=== PATIENT | female | born 1975 | race Caucasian/White ===

== ENCOUNTER 2023-04-16 13:49 | Outpatient (AMB) | payer MEDICARE, MEDICAID, SELFPAY ==
--- NOTE | 2023-04-16 13:52 | A.OFFVIS_ITS ---
Intake VS Expanded 04/16/23 13:55 04/25/23 14:06 Height 5 ft 8 in 5 ft 8 in Weight 196 lb 13.965 oz 197 lb BMI 29.9 30.0 Intake Visit Reasons: Obesity Medication List - Last Reconciled 04/25/[address], LDN cholecalciferol (vitamin D3) 125 mcg PO DAILY HPI Nutrition Presentation Details Pt presents for MNT for obesity. The Pt was referred by Dr Norma De La Rosa Pt reports having hashimotos , gastritis Pt reports highest weight at 171 lbs Reports having gained 30-35 lbs in a years (since moving from [place]) Typical meal intake 9-10 am B: coffee with almond milk and sugar ( 1/2 regular sugar , used to have splenda or may have oatmeal or pancake or scrambled or may skip snack on crackers 3 pm : rice/beans/ chicken air fryer or pasta with chicken coffee crackers or yogurt reports taking vitamin d 3 11120 food frequency: fruit/day: 2 vegetables (carrots, one/wk milk 0-1/d fish weekly (not including) physical activity: sedentary d/t back pain ETOH/SMOKING: denies AMS-Tkeogoc-Cj.Jeor Equation Height 5 ft 8 in Weight 197 lb Resting Metabolic Rate 1579.94 Calculated Activity Level Sedentary Calories Needed to Maintain Weight 1895.93 Diagnosis Nutrition problem #1 excessive energy intake As related to (etiology) #1 diagnosis As evidenced by (sign/symptom) #1 weight gain (reported weight gain of 30-35 lbs in 1 yr) Monitoring/Goals Nutrition problem monitoring total energy intake and weight Nutrition goal/outcome wt loss 5lbs in 2 months Learning/Education Readiness to learn good Most Recent Diabetes Results: No Data to Display [facility] Medical History (Updated 04/25/23 @ 14:[address], LDN) Elsa's disease Gastritis Assessment & Plan Assessment & Plan (1) Obesity (BMI 30.0-34.9): Code(s): E66.9 - Obesity, unspecified Plan: wt: 90 kg Est kcal needs as per MSJ: 1900 (40% carb, 30% protein/fat) Est fluid needs as per 25-30 ml/d: 2250 - 2700 Est prot per day as per 1 g/kg bw: 90g Recommend fiber intake : 8-10 g per day and gradually increase to 25-28 g per day for women and 35-38 g for men or as tolerated Recommend sodium intake per day : less than 2000 mg Educated patient on: ( R = reviewed V = verbalizes understanding N/R = needs review N/A = not applicable * Food sources of carbohydrate, adequate serving sizes and its role in various health conditions: R * Differences between complex carbohydrates a simple carbohydrates, role of fiber in diet: R * Differences between types of fats and role in diet (mono on saturated fat fatty acids, saturated fatty acids, trans fats): R * Food sources of sodium in salt and healthy modifications for heart health in kidney health: R * Vitamins and minerals: R * Healthy plate method concept: R * Physical activity: Benefits a precaution: R Patient Instructions: Work on having 3 meals per day following healthy plate method at dinner See 1800- 2000 antonio meal plan as reference Coding Level of Care Code Nutr Indiv Intake (83341) Diagnoses Obesity (BMI 30.0-34.9) E66.9 Time Spent (min) 30
[2023-04-16 13:55] VITALS: BMI 29.9
== END 2023-04-16 14:50 | disposition home or self-care (01) ==
PROVIDERS: PCP Internal Medicine; Visit Provider Dietitian, Registered
DX: E66.9 Obesity, unspecified (principal)

== ENCOUNTER → 2023-04-16 13:49 | Outpatient (BNVA) | payer MEDICARE, MEDICAID, SELFPAY | PROVIDERS: PCP Internal Medicine; Visit Provider Dietitian, Registered | DX: E66.9 Obesity, unspecified (principal); Z68.29 Body mass index [BMI] 29.0-29.9, adult; Z71.3 Dietary counseling and surveillance | CPT/HCPCS: 97802 ==

== ENCOUNTER 2024-12-18 09:21 | Day surgery (SDC) | payer OTHER, SELFPAY ==
--- OUTSIDE RECORDS SUMMARY | 2024-12-16 17:38 | XMS_ITS | Encounter Summary ---
Author Organization [facility] Address [address] [place] [address] Care Team Providers Care Brush Sander Name Role Phone Steffany Vázquez MD Primary Care Prov ider Encounter Details Date Type Department Care Team (Late st Contact Info) Description 09/18/2024 Lab Requisition [facility] - Main Lab [address] [facility] [place] [phone] Spike Young MD [address] [facility] [address] [place] [address] Frequency of micturition Social History Tobacco Use Types Packs/Day Years Used Date Smoking Tobacco: Never Smokeless Tobacco: Never Alcohol Use Standard Drinks/Week Comments Never 0 (1 standard drink = 0.6 oz pur e alcohol) Housing Instability Answer Date Recorde d Are you worried that in the next 2 months you may not have stable housing? No 06/19/2024 Food Access & Nutrition Answer Date Rec orded Do you have access to a vari ety of food including fruits and vegetables? Yes 06/19/2024 Access to Healthcare Answer Date Record ed Within the last 3 months, ho w many times did you visit the emergency department for your medical care? 0 06/19/2024 Health Literacy Answer Date Recorded How often do you need to hav e someone help you when you read instructions, pamphlets, or other written material from your doctor or pharmacy? Never 06/19/2024 Caregiver: How often do you need to have someone help you when you read instructions, pamphlets, or other written material from your doctor or pharmacy? Not on file 06/19/2024 Financial Risk Answer Date Recorded How hard is it for you to pa y for the very basics like food, housing, medical care, and air conditioning / heating? Not very hard 06/19/2024 Transportation Answer Date Recorded Has the lack of transportati on kept you from meetings, work, or from getting things needed for daily living? No Has the lack of transportati on kept you from medical appointments or from getting medications? No 06/19/2024 Social Isolation Answer Date Recorded How often do you feel lonely or isolated from those around you? Sometimes 06/19/2024 Food Risk Answer Date Recorded Within the past 12 months we worried whether our food would run out before we got money to buy more. Never true 06/19/2024 Within the past 12 months th e food we bought just didn't last and we didn't have money to get more. Never true 06/19/2024 Dependent Care Answer Date Recorded Do you need help finding or paying for care for your loved ones. For example, child watch attendant or elderly care for an older adult? No 06/19/2024 Education Answer Date Recorded Do you think completing more education or training, like finishing a GED, going to college, or learning a trade, would be helpful for you? No 06/19/2024 Employment and Income Answer Date Recor ded During the last four weeks, have you been actively looking for work? No 06/19/2024 Living Situation Answer Date Recorded What is your living situation? 1 08/20/2023 Comments No Sex and Gender Information Value Date Recorded Sex Assigned at Not on file Legal Sex Female 9:05 PM EST Gender Identity Not on file Sexual Orientation Not on file documented as of this encounter Plan of Treatment Upcoming Encounters Date Type Department Care Team (Late st Contact Info) Description 12/30/2024 8:00 AM EDT Office Visit Adult Medicine [address] [phone] Steffany Vázquez MD [address] [place] [address] 03/19/2025 11:30 AM EDT Appointment Radiology Department - [address] [phone] documented as of this encounter Procedures Procedure Name Priority Date/Time Associated Diagnosis Comments CULTURE URINE Routine 09/18/2024 6:29 PM EDT Frequency of micturition documented in this encounter Results * Culture urine (09/18/2024 6:29 PM EDT) Culture, Urine No growth 09/19/2024 1:13 PM EDT [facility] Urine Urine specimen obtained by clean catch procedure / Unknown 09/18/2024 6:29 PM EDT 09/18/2024 6:30 PM EDT us Spike Young MD LAB MICROBIOLOGY - GENER AL ORDERABLES Final Result [facility] [address] [place] [address], documented in this encounter Visit Diagnoses Diagnosis Frequency of micturition Urinary frequency Encounter for screening mammogram for breast cancer documented in this encounter Additional Health Concerns Assessment Noted Time PHQ-9 Depression Total Score: 14 025 8:43 AM EST documented as of this encounter Care Teams Brush Sander Relationship Specialty Start Date End Date Steffany Vázquez MD [address] [place] [phone] PCP - General 05/21/22 documented as of this encounter
[2024-12-18] VITALS (7 sets, daily range): BP systolic 111–122; BP diastolic 63–69; PULSE 77–99; RESP 16–18; TEMP 36.1–36.7; O2SAT 96–99; BMI 28.3
--- NOTE | ~2024-12-18 | FL_ITS ---
EXAMINATION: XR LUMBAR PUNCTURE CLINICAL INFORMATION: Pseudotumor cerebri COMPARISON: None available. TECHNIQUE: Following explaining fluoroscopy-guided lumbar puncture procedure, benefits and risk, a written consent was obtained. Patient was placed in left lateral decubitus view and a single image was obtained. Subsequently a L2-3 disc level was selected and marked on the skin. 1% lidocaine was injected at the marked site. A 22-gauge spinal needle was then inserted from the skin to the intraspinal canal at the L2-3 disc level. After removing the stylet and observing CSF return, opening CSF pressure was obtained. Subsequently CSF fluid was collected in 4 test tubes. Post CSF collection stylet was reintroduced and needle withdrawn. Complete hemostasis achieved at puncture site. Patient tolerated procedure extremely well. Simple Band-Aid applied postprocedure. FINDINGS: On the lateral fluoroscopy images obtained there is disc prosthesis at the L4-5 and L5-S1 disc level. There is unilateral posterior pedicular screws at L5 and S1 vertebra with interconnecting rods for posterior fusion. The opening CSF pressure measured 14 cm of water. Approximately 11 mL of clear CSF fluid was collected in 4 test tubes and sent to lab. FLUOROSCOPY TIME: 24 seconds DOSE AREA PRODUCT: 999 uGy-m2 (microgray-meter squared) FL/FL guided lumbar puncture LP IMPRESSION: Successful fluoroscopy-guided lumbar puncture performed with opening CSF pressure of 14 cm of water. Approximately 11 mL of clear CSF fluid was collected in 4 test tubes and sent to lab as per physician request. Electronically signed by: Rafy Acharya MD 12/18/2024 01:24 PM EDT
--- NOTE | 2024-12-18 09:55 | PC.NURSE ---
Patient in preop. She voiced I am nervous about this procedure due to my history of multiple back surgeries. After my Laminectomy in [place] 15 years ago, I got a golf ball sized cyst due to a leak in my dura . Dr. Acharya made aware and came to bedside to assess back and question patient more about history. Per Dr. Acharya, may proceed with LP at this time. Urine Preg order cancelled due to patient history of hysterectomy.
[2024-12-18 09:56] LABS: MANUAL DIFF FLAG NO
[2024-12-18 09:59] LABS: Basophils Percent Auto 0.4 % (0-2); Eosinophils Absolute Auto 0.1 X10*3/uL (0.0-0.4); Hematocrit 33.8 % (37.0-47.0); Hemoglobin 10.7 g/dl (12.0-16.0); Imm Gran Abs Auto 0.02 X10*3/uL (0.00-0.03); Imm Gran Pct Auto 0.3 % (0.0-0.4); Lymphocytes Absolute Auto 1.2 X10*3/uL (1.2-4.9); Lymphocytes Percent Auto 16.3 % (20-40); Mean Corpuscular HGB Conc 31.7 g/dl (31.0-35.0); Mean Corpuscular Hemoglobin 25.7 pg (27.0-33.0); Mean Corpuscular Volume 81.3 fL (80.0-98.0); Mean Platelet Volume 10.8 fL (9.4-12.3); Monocytes Absolute Auto 0.7 X10*3/uL (0.1-1.2); Monocytes Percent Auto 9.2 % (2-11); Neutrophils Absolute Auto 5.2 x10*3/uL (2.0-8.3); Neutrophils Percent Auto 72.8 % (45-73); Platelet Count 262 X10*3/uL (160-400); Red Blood Count 4.16 X10*6/uL (4.20-5.50); Red Cell Distribution Width 17.1 % (11.0-16.0); White Blood Count 7.2 X10*3/uL (4.8-10.8)
[2024-12-18 10:04] LABS: INTERNATIONAL NORM RATIO 0.9 (0.9-1.1); Prothrombin Time 10.8 SEC (10.9-12.4)
[2024-12-18 12:19] LABS: CSF Appearance Clear, Colorless; CSF Tube # 1
[2024-12-18 12:23] LABS: Glucose CSF 60 mg/dL; Total Protein CSF 17.9 mg/dL (15-45)
[2024-12-18 12:45] LABS: Appearance CSF CLEAR; CSF Tube # 4; Color CSF COLORLESS; Lymphocytes CSF 100 %; Red Blood Cell CSF 7 MM*3; White Blood Cell CSF 1 MM*3
== END 2024-12-18 13:12 | disposition home or self-care (01) ==
PROVIDERS: Radiology Diagnostic Radiology; PCP Internal Medicine; Visit Provider Psychiatry & Neurology Neurology
PROC: 009U3ZZ Drainage of Spinal Canal, Percutaneous Approach (ICD-10-PCS; CPT 62270; principal; 2024-12-18 11:00)
DX: G93.2 Benign intracranial hypertension (principal); R51.9 Headache, unspecified; M51.86 Other intervertebral disc disorders, lumbar region; G25.81 Restless legs syndrome; M35.00 Sjogren syndrome, unspecified; M79.7 Fibromyalgia; H53.9 Unspecified visual disturbance; F32.A Depression, unspecified; F41.9 Anxiety disorder, unspecified; Z79.899 Other long term (current) drug therapy; Z98.890 Other specified postprocedural states
CPT/HCPCS: 36415; 62328; 82945; 84157; 85025; 85610; 85730; 87015; 87070; 87116; 87205; 87206; 89051; J2003

== ENCOUNTER → 2024-12-18 10:38 | Outpatient (BNV) | payer OTHER, SELFPAY | PROVIDERS: PCP Internal Medicine; Visit Provider Radiology Diagnostic Radiology | DX: G93.2 Benign intracranial hypertension (principal) | CPT/HCPCS: 62328 ==

== ENCOUNTER 2025-01-19 14:45 | Outpatient (AMB) | payer OTHER, SELFPAY ==
--- NOTE | 2025-01-19 15:14 | A.OFFVIS_ITS ---
Intake Visit Reasons: PTC Allergies No Known Allergies Allergy (Verified 12/18/24 09:50) Medication List - Last Reconciled 01/19/25 by Spike Hopper MD acetaminophen 500 mg PO Q6H PRN baclofen 20 mg PO Q12H PRN cholecalciferol (vitamin D3) 125 mcg PO DAILY cyanocobalamin (vitamin B-12) (Vitamin B-12) 100 mcg orally daily cyclosporine 0.05% (Restasis) 1 drp ophthalmic (eye) Q12H duloxetine 60 mg PO CONT. PER PROTOCOL esomeprazole magnesium 40 mg PO BID fluticasone propionate 50 mcg/actuation intranasal BID ibuprofen 800 mg PO TID mometasone 50 mcg/actuation 2 sprays intranasal Q12H nortriptyline 10 mg PO BEDTIME nortriptyline 50 mg PO BEDTIME pramipexole PO pregabalin 100 mg PO TID HPI Comments Details: Her RLS Sx have improved. If she is in a car for > 1 hrs then they start to act up.. No change in vison. She has multiple autoimmune disorders, anxiety, depression, Sjogren syndrome, possible rheumatoid arthritis, fibromyalgia, lumbar disc disease. She also has restless legs that are not controlled with the current dose of ropinirole. She feels the need to walk around constantly and cannot sit still, and has to keep moving her legs, especially in the afternoon and evening. She also complains of generalized aches and pains all over. Recent ly, she's had problems with vision in the right eye and is scheduled for an MRI of the brain and optic nerve . She's had 4 lumbar disc surgeries with 2 disc replacements. She has frequent headaches, approximately 4 days a week and feels pressure in her head. She saw a neuro clipper counters who thinks she may have pseudotumor cerebri 06/09/24 NCV/EMG UE Normal motor and sensory nerve conduction velocities in the upper extremities. Normal EMG in the right C5-T1 innervated muscles. 06/23/24 LISBET ROSY Mildly prolonged P-100 latencies bilaterally consistent with mild bilateral anterior optic pathway abnormality. 06/17/24 MRI mild microvascular ischemic changes. Normal MRA intracranial 12/18/24 LP The opening CSF pressure measured 14 cm of water.Approximately 11 mL of clear CSF fluid was collected. CSF studies were normal. [facility] Medical History (Updated 01/19/25 @ 15:26 by Spike Hopper MD) Optic neuropathy Extrapyramidal and movement disorder Sjogren syndrome Cataracts, bilateral Restless leg syndrome HLD (hyperlipidemia) IBS (irritable bowel syndrome) Lumbar disc disease Fibromyalgia Mitral valve prolapse Arthritis, rheumatoid Depression Anxiety Elsa's disease Gastritis Surgical History (Updated 12/18/24 @ 10:52 by Johana Engel RN) Previous back surgery H/O knee surgery History of basal cell carcinoma (BCC) excision Hx of breast reduction, elective H/O breast biopsy History of hysterectomy H/O lumbar discectomy Review of Systems Const Details: Sleep:? Difficulty getting to sleepadmits.? Difficulty maintaining sleepadmits.? Urge to move legsadmits.? Teeth grindingadmits.? Shouting or Kicking during sleep admits.? Abnormal behavior during sleepdenies.? Excessive sleepdenies.? Snoring admits.? Daytime sleepinessdenies. ???General/Constitutional:? Change in appetitedenies.? Chillsdenies.? Fatigueadmits.? Feverdenies.? Weight gainadmits.? Weight lossdenies. ???Ophthalmologic:? Blurred visiondenies.? Diminished visual acuitydenies. ???ENT:? Stuffinessdenies.? Decreased hearingdenies.? Dry mouthdenies.? Ear paindenies.? Nosebleeddenies.? Ringing in the earsdenies.? Sinus painadmits.? Sore throat denies.? Swollen glandsdenies. ???Endocrine:? Cold intolerancedenies.? Excessive thirstdenies.? Frequent urinationdenies.? Heat intolerancedenies. ???Respiratory:? Shortness of breathadmits.? Chest paindenies.? Coughdenies. ???Breast:? Breast lumpadmits.? Nipple dischargedenies. ???Cardiovascular:? Chest pain at restdenies.? Chest pain with exertiondenies.? Claudicationdenies .? Dizzinessdenies.? Fluid accumulation in the legsdenies.? Irregular heartbeat denies.? Palpitationsdenies. ???Gastrointestinal:? Abdominal paindenies.? Constipationadmits.? Diarrheaadmits.? Difficulty swallowingdenies.? Heartburnadmits.? Nauseaadmits.? Rectal bleedingdenies. ???Hematology:? Easy bruisingdenies.? Prolonged bleedingdenies. ???Genitourinary:? Frequent urinationdenies.? Urgencydenies.? Incontinencedenies.? Erectile Dysfunctiondenies. ???Musculoskeletal:? Neck painadmits.? Back painadmits.? Muscle achesadmits.? Painful jointsadmits.? Sciaticadenies.? Weaknessdenies. ???Podiatric:? Difficulty walkingdenies.? Foot numbnessdenies. ???Neurologic:? Difficulty swallowingdenies.? Balance difficultyadmits.? Coordinationnormal.? Difficulty speakingdenies.? Dizzinessdenies.? Faintingdenies.? Gait abnormality denies.? Headacheadmits.? Loss of strengthdenies.? Loss of use of extremity denies.? Low back paindenies.? Memory lossdenies.? Seizuresdenies.? Ticsdenies.? Tingling/Numbnessadmits.? Transient loss of visionadmits.? Tremordenies. ???Psychiatric:? Anxietyadmits.? Auditory/visual hallucinationsdenies.? Delusionsdenies.? Depressed moodadmits.? Stressorsadmits.? Substance abusedenies.? Suicidal thoughtsdenies. Physical Exam Neuro Other: Neurological: Abnormal neurological findings:??none.?Mental Status:??alert and oriented X 3,?Normal attention, orientation, memory and affect.?Cranial Nerves:??Pupils are equal, round and reactive to light. Fundoscopy shows normal disc bilaterally. External occular muscles are intact. Visual fine are full, no ptosis. Face is symmetrical, no facial weakness or droop. Facial sensations are normal. Tongue protrudes in midline. Palate elevates symmetrically. Shoulder shrugging is normal..?Motor Examination:??Normal muscle tone, bulk and strength,?No atrophy or fasciculations,?No drift of the extended upper extremities,?Deep tendon reflexes are 2+?,?Plantars are flexor?.?Straight Leg Raising:??90 degrees.?Sensory Exam:??Normal light touch, temperature, pinprick, vibration and joint-position sensations?,?Rhomberg sign is absent.?Coordination:??no ataxia,?no titubation,?njvlit-yw-nhmq, fzun-aczm-yyuc test and rapid alternating movements were normal.?Gait Exam:??Within normal limits.?Cerebellar Signs:??Btjscm-hj-jzda and xjoc-lb-rlox is normal,?no dysdiadochokinesia?.?Extrapyramidal System:??No tremor, rigidity with normal facial expressions,?No bradykinesia, no bradyphrenia. Normal arm swing and posture. No propulsion or retropulsion.?Speech:??Normal,?no dysphasia or dysarthria..? Mini Mental Status Exam: Level of Consciousness:??Alert.?Orientation:??Knows correct year, month, date, day and season,?Knows correct city, county and state. Knows correct location and floor.?Registration:??Able to register 3 objects.?Attention:??Serial 7's performed accurately.?Recall:??Able to recall 3 out of 3 objects.?Language:??Normal spontaneous speech, fluency, repetition,naming, comprehension, reading and writing.?Total Score:??30/30.? General Examination: GENERAL APPEARANCE:??normal,?in no acute distress.?HEAD:??normocephalic,?atraumatic.?EYES:??sclera non- icteric,?conjunctiva clear.?EARS:??auditory canal clear,?tympanic membrane intact, clear.?NOSE:??no lesions.?ORAL CAVITY:??gums normal,?mucosa moist,?no lesions.?THROAT:??clear.?NECK/THYROID:??no cervical lymphadenopathy,?thyroid normal,?neck supple, full range of motion,?no carotid bruit.?SKIN:??no rashes,?no significant birthmarks.?HEART:??S1, S2 normal,?no murmurs.?LUNGS:??clear anteriorly and posteriorly.?CHEST:??no gross rib deformity,?clear to auscultation.?BACK:??normal exam of spine.?EXTREMITIES:??no edema.?PERIPHERAL PULSES:??normal.?PSYCH:??alert, oriented,?cognitive function intact,?cooperative with exam.? Assessment & Plan Assessment & Plan (1) Tension headache: Code(s): G44.209 - Tension-type headache, unspecified, not intractable Category: Medical (2) Restless leg syndrome: Code(s): G25.81 - Restless legs syndrome Category: Medical Plan Now that we have ruled out pseudotumor cerebri, we will treat for tension Perez by increasing dose of Nortriptyline to 100mg hs. For RLS , will increase Pramipexole to 0.5 mg bid Medications: New nortriptyline 100 mg (2 x 50 mg) PO BEDTIME 60 caps 5RF 30 days Changed From pramipexole PO To pramipexole 1 tab at 5 pm and 1 tab at 10 pm 0.5 mg PO BID 60 tabs 5RF 30 days Coding Level of Care Code Est Pt Level 4 (63068) Diagnoses Tension headache G44.209 Restless leg syndrome G25.81
--- OUTSIDE RECORDS SUMMARY | 2025-01-19 16:07 | XMS_ITS | Encounter Summary ---
Author Organization [facility] Address [address] [place] [address] Care Team Providers Care Peanut Grader Name Role Phone Steffany Vázquez MD Primary Care Prov ider Encounter Details Date Type Department Care Team (Late st Contact Info) Description 09/18/2024 Lab Requisition [facility] - Main Lab [address] [facility] [place] [phone] Spike Young MD [address] [facility] [address] [place] [address] Frequency of micturition Social History Tobacco Use [...] care for your loved ones. For example, director child or elderly care for an older adult? [...] Care Team (Late st Contact Info) Description 03/05/2025 1:00 PM EDT [facility]ointment [facility] [address] [phone] documented as of this encounter Procedures Procedure Name Priority Date/Time Associated Diagnosis Comments CULTURE URINE Routine 09/18/2024 6:29 PM EDT Frequency of micturition documented in this encounter Results * Culture urine (09/18/2024 6:29 PM EDT) Culture, Urine No growth 09/19/2024 1:13 PM EDT [facility] Urine Urine specimen obtained by clean catch procedure / Unknown 09/18/2024 6:29 PM EDT 09/18/2024 6:30 PM EDT us Spike Young MD LAB MICROBIOLOGY - GENER AL ORDERABLES Final Result [facility] [address] [place] [address], documented in this encounter Visit Diagnoses Diagnosis Frequency of micturition Urinary frequency Encounter for screening mammogram for breast cancer documented in this encounter Additional Health Concerns Assessment Noted Time PHQ-9 Depression Total Score: 14 025 8:43 AM EST documented as of this encounter Care Teams Peanut Grader Relationship Specialty Start Date End Date Steffany Vázquez MD [address] [place] [id number] PCP - General 05/21/22 documented as of this encounter
--- OUTSIDE RECORDS SUMMARY | 2025-01-19 16:08 | XMS_ITS | Patient Health Record ---
Author Organization [facility] Billing Info Address [address] [place] [address] Care Team Providers Care Bar Turner Name Role Phone KATELIN Ma Reason For Referral No Information Medications Medication SIG (Take, Route, Frequency, Duration) Notes Start Date End Date Status Emjoi TENS as directed 05/24/2016 Active Transdermal Pain Base -- as directed Ext ernally As directed for 30 day(s) 05/24/2016 Active Diphenoxylate-Atropine 2.5-0.025 MG Oral for 30 Active Lyrica 200 MG Oral for 30 Acti ve Tramadol HCl 50 MG Oral for 30 Active Sertraline HCl 100 MG Oral for 30 Active Metoprolol Succinate ER 25 MG Oral for 90 Active Ondansetron 4 MG 1 tablet on the tong ue and allow to dissolve Orally every 8 hrs Active Nortriptyline HCl 50 MG Oral for 90 Active Transdermal Pain Base - as directed Externally 08/2016 Active Dicyclomine HCl 20 MG Oral for 90 Active Chlorzoxazone 500 MG Oral for 30 Active Voltaren 1 % Transdermal for 30 Active Lidocaine 5 % External for 30 Active Nasonex 50 MCG/ACT Nasal for 30 Active Protonix 40 MG 1 tablet Orally Once a day Active Cetirizine-Pseudoephedrine ER 20 mg 1 tablet Orally Twice a day Active Lorzone 375 MG Orally Activ e Social History Tobacco Use: Social History Observation Description Date Details (start date - stop date) Never Smoker NA - NA Tobacco Status: Question Answer Notes Patient is a never smoker Problems Problem Type SNOMED Code ICD Code Onset Dates Problem Status W/U Status Risk Notes Problem 41883108 Other chronic pain (G89.29) Active confirmed Problem 593522787 Lumbago with sciatica, right side (M54.41) Active confirmed Problem 83674375 Hip pain, left (M25.552) Active confirmed Problem 164969008 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) Active confirmed Plan Of Treatment Pending Test Test Name Order Date XRAY-SPINE, LUMBOSACRAL; 2 OR 3 VIEWS (7 2100) 05/24/2016 Insurance Providers Payer Name Payer Address Payer Phone Subscriber Number Group Number Insured Name Patient Relationship to Insured Coverage Start Date Coverage End Date MEDICARE [place] PART B [address] [facility] ALLEN [id number] Bebe Castro Self - patient is the insured 0 [place]ID [place] [address] [place], [place] [id number] Castro Bebe Self - patient is the insured 4 Medical (General) History Medical History History ICD Code Fibromyalgia Esophageal reflux Insomnia Depression DX 2007 ([place]) Carpal tunnel Surgical History Surgery Date(Month/Year) lumbar fusion by Dr. Harrison 04/19/14 lumbar laminectomy ([place]) 2010,, 04/2008 hysterectomy 2010 knee surgery, right breast biopsy, left 2001 breast reduction 08/2015
--- OUTSIDE RECORDS SUMMARY | 2025-01-19 16:08 | XMS_ITS | Data Portability ---
Author Organization [facility] Address [address] [place] [address] Assessment No assessment recorded. Plan of Treatment Reminders Order Date Submit Date Provider Last Modified By Organization Details Last Modified Time Details Appointments None recorded. Lab rapid strep group A, throat 2022 023 [email or web address] [facility], [address] [place] [address], [phone], 12:49:47 Referral None recorded. Procedures None recorded. Surgeries None recorded. Imaging None recorded. Medication Orders amoxicillin 875 mg tablet 2022 023 [id number], [address], [place], [phone], 12:49:54 Patient TargetsNo targets recorded. Patient Instructions Encounter Date Encounter Id Patient Instructions Last Modified By Organization Details Last Modified Time 11/28/2022 [id number] strep throat: care instructions [email or web address] Not available 11/28/2022 12:49:53 Reason for Referral None Reported. Results Created Date Observation Date Name Description Value Unit Range Abnormal Flag Note LastModifiedBy Organization Detail LastModifiedTime 11/29/1911/28/2022 rapid strep group A, throa t Unknown Analyte Normal = Negati ve Not Available jose singh [address], [phone], 11/28/2022 12:12:56 11/29/1911/28/2022 rapid strep group A, throa t Unknown Analyte positi ve Not Available [facility] [address] [facility], [place], [address], 11/28/2022 12:12:56 Result Notes None recorded. 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 2022 TERA MORALES null, PA - [facility] 12:09:52 Sj gren's syndrome 35171534 Active 2022 TERA MORALES null, PA - [facility] 12:09:57 Carpal tunnel syndrome 48121534 Active 2022 TERA MORALES null, PA - [facility] 12:10:09 Depressive disorder 60882283 Active 2022 TERA MORALES null, PA - [facility] 12:10:19 Anxiety 02779873 Active 2022 TERA MORALES null, PA - [facility] 12:10:24 Insomnia 568603823 Active 2022 TERA MORALES null, PA - [facility] 12:10:30 Arthritis 4791807 Active 2022 TERA MORALES null, PA - [facility] 12:10:36 Problem Notes None recorded. Procedures Surgical History Date Name Laterality Status Provider Name and Address Organization Details Recorded Time [facility] 11/28/2022 12:12:06 procedure on knee completed [facility] - [facility] 11/28/2022 12:12:24 procedure on back completed [facility] - [facility] 11/28/2022 12:12:36 extraction of cataract completed [facility] - [facility] 11/28/2022 12:12:49 Imaging Results None recorded. Procedure Notes None recorded. Medical Equipment None Reported. Allergies No known drug allergies Medications Name Sig Start Date Stop Date Status Note LastModified by Organization Details LastModified Time ibuprofen 800 mg tablet active Not Available Not Available Not Available baclofen 20 mg tablet active Not Available Not Available No t Available amoxicillin 875 mg tablet Take 1 tablet every 12 hours by oral route for 10 days. 2022 active Not Available Not Available Not Avai lable dicyclomine 20 mg tablet TAKE 1 TABLET BY MOUTH FOUR TIMES DAILY active Not Available Not Available No t Available ropinirole 2 mg tablet TAKE 1 TABLET BY MOUTH DAILY 1 TO 3 HOURS BEFORE BEDTIME active Not Available Not Available No t Available pantoprazol e 40 mg tablet,izabel yed release 11/28 completed Not Available Not Available Not Available nortriptyli ne 10 mg capsule TAKE 1 CAPSULE BY MOUTH DAILY AT BEDTIME active Not Available Not Available No t Available esomeprazol e magnesium 40 mg capsule,del ayed release TAKE 1 CAPSULE BY MOUTH EVERY DAY active Not Available Not Available No t Available ropinirole 0.5 mg tablet TAKE 1 TABLET BY MOUTH DAILY 1 TO 3 HOURS BEFORE BEDTIME active Not Available Not Available No t Available diclofenac sodium 50 mg tablet,izabel yed release TAKE 1 TABLET BY MOUTH TWICE DAILY WITH FOOD NEEDED FOR PAIN 11/28 completed Not Available Not Available Not Available nortriptyli ne 50 mg capsule TAKE 1 CAPSULE BY MOUTH DAILY AT BEDTIME active Not Available Not Available No t Available Restasis 0.05 % eye drops in a dropperette active Not Available Not Available Not Available nitrofurant oin monohydrate /macrocryst als 100 mg capsule 11/28 completed Not Available Not Available Not Available duloxetine 60 mg capsule,del ayed release TAKE 1 CAPSULE BY MOUTH DAILY active Not Available Not Available No t Available pregabalin 150 mg capsule TAKE 1 CAPSULE BY MOUTH THREE TIMES DAILY active Not Available Not Available No t Available Nasonex active Not Available Not Avail able Not Available montelukast active Not Available Not A vailable Not Available azelastine active Not Available Not Av ailable Not Available cholecalcif iona (vitamin D3) 1,250 mcg (50,000 unit) capsule TAKE 1 CAPSULE BY MOUTH ONCE A WEEK active Not Available Not Available No t Available BinaxNOW COVID-19 Ag Self Test kit TEST DIRECTED TODAY 11/28 completed Not Available Not Available Not Available Vitals Date Recorded Body height Body mass index (BMI) Body weight Respiratory rate Oxygen saturation Oxygen saturation in Arterial blood by Pulse oximetry Heart rate Body temperature Systolic And Diastolic Provider Name and Address Organization Details Last Updated DateTime 172.72 cm 28.4 kg/m2 52743.7 7 g 17 /min 100 % 100 % 124 /min 98.3 [degF] 119/79 mm[Hg] TERA MORALES [facility] 12:13:51 Social History Question Answer Notes LastModified by [employer] Details LastModified Time Tobacco Smoking Status Never Smoker TERA catalan [facility] 11/28/2022 12:11:37 Have You Recently Traveled Abroad? No [email or web address] Information not available 11/28/2022 Sex: Unknown Functional Status Question Answer Note LastModified by [employer] Details LastModified Time Do you use any illicit or recreational drugs? No [email or web address] Information not available 11/28/2022 Do you or have you ever used any other forms of tobacco or nicotine? No [email or web address] Information not available 11/28/2022 What is your level of alcohol consumption? None [email or web address] Information not available 11/28/2022 Mental Status None recorded. Family History Nothing Reported. Medical History No medical history recorded. Gynecological HistoryNo gynecological history recorded. Obstetrics History GPAL:G 0 P 0 0 0 0 Past Encounters Encounter ID Performer Location Encounter Start Date Encounter Closed Date Diagnosis/Indication Diagnosis SNOMED-CT Code Diagnosis ICD10 Code Diagnosis Note [id number] [address] [place] [address] 02/08/2022 10:04:51 02/08/2022 12:55:30 [id number] Genesis Hale [place] [address] [place] [phone] 11/28/2022 09:25:31 11/28/2022 12:50:48 Streptococcal sore throat 63890216 J02.0 Use over the counter medication s for your sore throat. Basic lozenges (cough drops) or lozenges with an anesthetic (numbing agent) can be used as needed for quick results; look for the active ingredient , benzocaine , for numbing lozenges (like Cepacol Extra or Chlorasept ic Max). Gargling with warm salt water can also relieve pain. Please consult our office promptly if you develop any of the following symptoms: 1. A fever of at least 101 F or 38.4 C2. Throat pain that is severe or does not start to improve within 5 to 7 days Call for an ambulance or go to the emergency room if you:1. Have trouble breathing2 . Cannot control your saliva (drooling) due to difficulty swallowing 3. Have swelling of the neck or tongue4. Cannot move your neck or have trouble opening your mouth Health Concerns Section Related Observation LastModified by Organization Detai ls LastModified Time None Recorded Concern Status LastModified by Organization Details LastModified Time None Recorded Advance Directives Directive None Recorded Payers Insurance Date Sequence Insurance Name Policy Number Policy Wu Covered Member ID Wu Member ID Guarantor Name 11/28/2022 1 [facility] [id number] Bebe Castro [id number] Bebe Castro 03/12/2023 2 [place] [facility] Bebe Castro [id number] Bebe Castro 02/04/2023 1 [facility] ([facility] [id number] Bebe A Castro [id number] Bebe Castro Notes Date Note Type Note Provider Name and Address Organization Details Recorded Time 11/28/2022 text/html Sore throatRepor elias bypatient.Location:t hroat Severity:moderate Quality:sharp; hurts to swallow Onset/Timin days Associated Symptoms:no cough; no sputum production; no shortness of breath; no wheezing; no sinus pain; no vomiting; no nausea; No hoarseness Genesis Hale MD [address], [place], [address], [place] - [facility] 11/30/2022 12:09:01 OBGyn Episode No OBEpisode recorded.
== END 2025-01-19 15:35 | disposition home or self-care (01) ==
LOC: HO.HSM 14:46
PROVIDERS: PCP Internal Medicine; Referring Provider Internal Medicine; Visit Provider Psychiatry & Neurology Neurology
DX: G44.209 Tension-type headache, unspecified, not intractable (principal); G25.81 Restless legs syndrome
CPT/HCPCS: 99214

== ENCOUNTER → 2025-01-19 14:45 | Outpatient (BNVA) | payer OTHER, SELFPAY | PROVIDERS: PCP Internal Medicine; Referring Provider Internal Medicine; Visit Provider Psychiatry & Neurology Neurology | DX: G25.81 Restless legs syndrome (principal); G44.209 Tension-type headache, unspecified, not intractable | CPT/HCPCS: 99212 ==

== ENCOUNTER 2025-07-07 13:50 | Outpatient (AMB) | payer OTHER, SELFPAY ==
[2025-07-07 13:51] VITALS: BMI 29.6
--- NOTE | 2025-07-07 13:51 | A.PHYSOV_ITS ---
Vital Signs 07/07/25 13:51 Height 5 ft 8 in Weight 195 lb BMI 29.6 Intake Visit Reasons: Bilateral shoulder injections Intake Note: Patient is a 49 year old female here for bilateral shoulder injections. Patient on antibotic was started 2 days ago for a uti. Patient unable to have injection patient will reschedule for 2 weeks . Cardiopulmonary Technician Required: No Allergies No Known Allergies Allergy (Verified 07/07/25 13:52) HPI Comments Details: Patient was scheduled for cortisone injection. Patient is currently on antibiotics for urinary tract infection. We will postpone cortisone injection until her infection is cleared. [facility] Medical History (Updated 07/07/25 @ 14:08 by CARLOS Caban) Optic neuropathy Extrapyramidal and movement disorder Sjogren syndrome Cataracts, bilateral Restless leg syndrome HLD (hyperlipidemia) IBS (irritable bowel syndrome) Lumbar disc disease Fibromyalgia Mitral valve prolapse Arthritis, rheumatoid Depression Anxiety Elsa's disease Gastritis Surgical History (Updated 12/18/24 @ 10:52 by Johana Engel RN) Previous back surgery H/O knee surgery History of basal cell carcinoma (BCC) excision Hx of breast reduction, elective H/O breast biopsy History of hysterectomy H/O lumbar discectomy Physical Exam Vital Signs: BMI result Body Mass Index 29.6 Assessment & Plan Assessment & Plan (1) Shoulder impingement: Code(s): M25.819 - Other specified joint disorders, unspecified shoulder Category: Medical Plan Our plan is to see her in follow-up once her infection is cleared. Coding Level of Care Code Procedure Only Diagnoses Shoulder impingement M25.819
--- OUTSIDE RECORDS SUMMARY | 2025-07-07 15:08 | XMS_ITS | Clinical Summary ---
Author Organization [facility] Address [address] [place] [address] Phone Care Team Providers Care It Programmer Name Role Phone Steffany Vázquez MD Primary Care Prov ider Allergies No known active allergies Medications pregabalin (LYRICA) 150 mg capsule TAKE 1 CAPSULE BY MOUTH THREE TIMES DAILY 09/11/19 24 Active baclofen (LIORESAL) 20 mg tablet 11/30/19 23 Active acetaminophen (TYLENOL 8 HOUR) 650 mg 8 hr tablet Take 1 tablet (650 mg total) by mouth every 8 (eight) hours if needed. Active LORATADINE ORAL Take by mouth. Active cycloSPORINE 0.05 % drops 1 Drop 2 times daily. Active CALCIUM CARBONATE ORAL Take by mouth. Active ibuprofen (ADVIL,MOTRIN) 600 mg tablet Take 1 tablet (600 mg total) by mouth every 6 (six) hours if needed (pain). 90 tablet 07/30/19 25 Active acetaZOLAMIDE (DIAMOX) 500 mg 12 hr capsule Take 1 capsule (500 mg total) by mouth 1 (one) time each day in the morning. 08/21/19 25 Active azelastine (ASTELIN) 137 mcg (0.1 %) nasal spray Administer 1 spray into each nostril 2 (two) times a day. Use in each nostril as directed 30 mL 12 08/27/19 25 026 Active estradioL (ESTRACE) 0.01 % (0.1 mg/gram) vaginal cream APPLY 1 GRAM VAGINALLY TWICE A WEEK 09/19/19 25 Active nitrofurantoin (MACRODANTIN) 100 mg capsule 09/22/19 25 Active esomeprazole (NexIUM) [address] capsuleIndicati ons:Irritable bowel syndrome with constipation,Ga stroesophageal reflux disease, unspecified whether esophagitis present,Irritab le bowel syndrome, unspecified type Take 1 capsule (40 mg total) by mouth 1 (one) time each day. 90 each 3 11/10/19 25 026 Active nortriptyline (PAMELOR) 50 mg capsuleIndicati ons:Irritable bowel syndrome with constipation,Ga stroesophageal reflux disease, unspecified whether esophagitis present,Irritab le bowel syndrome, unspecified type TAKE 1 CAPSULE BY MOUTH DAILY 90 capsule 1 02/11/20 25 Active DULoxetine (CYMBALTA) [address] capsule Take 1 capsule (60 mg total) by mouth 1 (one) time each day. Do not crush or chew. 90 capsule 1 05/20/20 25 Active betamethasone, augmented, (DIPROLENE-AF) 0.05 % cream Apply thin layer to affected area BID for 2 weeks then stop. Avoid face and groin. 30 g 05/20/20 25 Active fluticasone propionate (FLONASE) 50 mcg/actuation nasal spray SHAKE LIQUID AND USE 2 SPRAYS IN EACH NOSTRIL DAILY 48 g 06/07/20 25 Active ferrous sulfate 325 mg (65 mg iron) EC tablet TAKE 1 TABLET BY MOUTH THREE TIMES DAILY WITH MEALS. DO NOT CRUSH, CHEW OR SPLIT 270 tablet 06/29/20 25 Active pramipexole (MIRAPEX) 0.5 mg tablet Take 1 tablet (0.5 mg total) by mouth 2 (two) times a day. 06/06/20 25 Active dicyclomine (BENTYL) 20 mg tabletIndicatio ns:Irritable bowel syndrome with constipation,Ga stroesophageal reflux disease, unspecified whether esophagitis present,Irritab le bowel syndrome, unspecified type Take 1 tablet (20 mg total) by mouth 4 (four) times a day (before meals and nightly). 360 each 3 07/03/20 24 025 ferrous sulfate 325 mg (65 mg iron) EC tablet TAKE 1 TABLET BY MOUTH THREE TIMES DAILY WITH MEALS. DO NOT CRUSH, CHEW OR SPLIT. 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 esomeprazole (NexIUM) [address] capsule; Take 1 capsule (40 mg total) by mouth 1 (one) time each day. nortriptyline (PAMELOR) 50 mg capsule; Take 1 capsule (50 mg total) by mouth at bedtime. nortriptyline (PAMELOR) 10 mg capsule; Take 1 capsule (10 mg total) by mouth 1 (one) time each day. 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 Insomnia 11/28/2022 Irritable bowel syndrome 11/28/2022 Arthritis 11/28/2022 Sjogren's syndrome 11/28/2022 Vaginal high risk HPV DNA test positive 08/29/19 23 Overview (04/16/2024): 07/2020:OUTSIDE Vaginal PAP Neg cytology, pos HPV ( neg 16, 18 , 45) Vitamin D deficiency 08/29/2022 Encounters Date Type Department Care Team Description 06/29/2025 2:40 PM EST Office Visit Gastroenterology - [address] [place] [address] Shaila Williamson NP Irritable bowel syndrome with constipation (Primary Dx); Hiatal hernia with gastroesophageal reflux disease without esophagitis 06/29/2025 Telephone Adult Medicine [address] [phone] Steffany Zamora MD 05/20/2025 8:00 AM EST Office Visit Adult Medicine [address] [phone] Cindy Casarez PA Chronic bilateral low back pain without sciatica (Primary Dx); Encounter for monitoring chronic NSAID therapy; Encounter for screening involving social determinants of health (SDoH) from Last 3 Months Immunizations Immunization Administration Dates Next Due Tdap Tetanus diptheria acell ular pertussis (Boostrix; Adacel) 7yo and older 03/08/2023 Surgical History Surgery Date Site/Laterality Comments BACK SURGERY PROCEDURE: HISTORICAL BACK SURGERY HYSTERECTOMY PROCEDURE: HISTORICAL HYSTERECTOMY BREAST REDUCTION Bilateral PROCEDURE: WY BREAST REDUCTION; COMMENT: hemorrage complication OTHER SURGICAL HISTORY 11/2022 Left PROCEDURE: WY BX BREAST W/DEVICE 1ST LESION STEREOTACTIC GUID; COMMENT: benign BREAST BIOPSY PROCEDURE: BX BREAST; PERC NEEDLE CORE W/IMAG GUID CATARACT EXTRACTION, BILATERAL 08/08/2024 - 09/04/2024 HYSTERECTOMY TOTAL CERVIX REMOVED COLONOSCOPY EYE SURGERY JOINT REPLACEMENT SPINE SURGERY Medical History Medical History Date Comments IBS (irritable bowel syndrome) D X:IBS (irritable bowel syndrome) Fibromyalgia DX:Fibromyalgia Back pain DX:Back pain Elsa's disease DX:Elsa 's disease Vaccine for human papilloma virus (HPV) types 6, 11, 16, and 18 administered DX:Vaccine for hu man papilloma virus (HPV) types 6, 11, 16, and 18 administered; COMMENT: per pt report Mitral valve prolapse DX:Mitral valve prolapse Herniated lumbar intervertebral disc DX:Herniated lumbar intervertebral disc Anxiety disorder DX:Anxiety diso rder Rheumatoid arthritis (CMS/HC C V24, CMS/HCC V28) DX:Rheumatoid arthritis (HCC ) HLD (hyperlipidemia) DX:HLD (hyp erlipidemia) RLS (restless legs syndrome) DX: RLS (restless legs syndrome) Chronic diarrhea GERD (gastroesophageal reflux disease) Cataract Depression Anemia Allergic rhinitis Obesity Chronic constipation Thyroid nodule Vitamin D deficiency Hernia, internal Family History Medical History Relation Name Comments Breast cancer Aunt 1 father side Other: thyroid cancer Aunt 2 Arthritis Father Ran Osborn Depression Father Ran Osborn Glaucoma Father Ran Osborn Hyperlipidemia Father Ran Osborn Hypertension Father Ran Osborn Vision loss Father Ran Osborn Hypertension Maternal Grandmother Cancer Mother Hoshking dease Immunodeficiency Mother Hoshking dease Other: Hodgekins Disease Mother Hoshking dease Other: Pre- Diabetes Sister 1 Arthritis Sister 2 Colon cancer Neg Hx Ovarian cancer Neg Hx Relation Name Status Comments Aunt 1 father side Alive Aunt 2 Alive Father Ran Osborn Alive Maternal Grandfather Maternal Grandmother Mother Hosh[place] dease Paternal Grandfather Paternal Grandmother Sister 1 Alive Sister 2 Alive Social History Tobacco Use Types Packs/Day Years Used Date Smoking Tobacco: Never Smokeless Tobacco: Never Tobacco Cessation:Counseling Given: Not Answered Alcohol Use Standard Drinks/Week Comments Never 0 (1 standard drink = 0.6 oz pur e alcohol) Housing Instability Answer Date Recorde d Are you worried that in the next 2 months you may not have stable housing? No 05/20/2025 Food Access & Nutrition Answer Date Rec orded Do you have access to a vari ety of food including fruits and vegetables? Yes 05/20/2025 Access to Healthcare Answer Date Record ed Within the last 3 months, ho w many times did you visit the emergency department for your medical care? 0 05/20/2025 Health Literacy Answer Date Recorded How often do you need to hav e someone help you when you read instructions, pamphlets, or other written material from your doctor or pharmacy? Never 05/20/2025 Caregiver: How often do you need to have someone help you when you read instructions, pamphlets, or other written material from your doctor or pharmacy? Not on file 05/20/2025 Financial Risk Answer Date Recorded How hard is it for you to pa y for the very basics like food, housing, medical care, and air conditioning / heating? Not very hard 05/20/2025 Transportation Answer Date Recorded Has the lack of transportati on kept you from meetings, work, or from getting things needed for daily living? No Has the lack of transportati on kept you from medical appointments or from getting medications? No 05/20/2025 Social Isolation Answer Date Recorded How often do you feel lonely or isolated from th ose around you? Never 05/20/2025 Food Risk Answer Date Recorded Within the past 12 months we worried whether our food would run out before we got money to buy more. Never true 05/20/2025 Within the past 12 months th e food we bought just didn't last and we didn't have money to get more. Never true 05/20/2025 Dependent Care Answer Date Recorded Do you need help finding or paying for care for your loved ones. For example, childcare aide or elderly care for an older adult? No 05/20/2025 Education Answer Date Recorded Do you think completing more education or training, like finishing a GED, going to college, or learning a trade, would be helpful for you? No 05/20/2025 Employment and Income Answer Date Recor ded During the last four weeks, have you been actively looking for work? No 05/20/2025 Living Situation Answer Date Recorded What is your living situation? Unrecognized valu e 05/20/2025 Comments No Sex and Gender Information Value Date Recorded Sex Assigned at Female 04/28/2025 10:46 PM EDT Legal Sex Female 9:05 PM EST Gender Identity Female 04/28/2025 10:46 PM EDT Sexual Orientation Straight 04/28/2025 10 :46 PM EDT Occupation Industry Job Start Date Job End Date Disabled Not on file Not on file Not on file Obstetrics History Para Term AB IAB SAB Ectopic Multiple Livin g Live Births 1 1 1 1 1 Date Outcome GA Total Labor Labor/2nd/3rd Weight Sex Type Anes PTL Criss A1 A5 Name Clin 9 Term Vag-S pont Living Last Filed Vital Signs Vital Sign Reading Time Taken Comments Blood Pressure 115/80 06/29/2025 2:35 PM EST Pulse 82 06/29/2025 2:35 PM EST Temperature 36.1 C (97 F) 05/20/2025 8:03 AM EST Respiratory Rate 14 05/20/2025 8:03 AM EST Oxygen Saturation 97% 06/29/2025 2:35 PM EST Inhaled Oxygen Concentration - - Weight 88.1 kg (194 lb 3.2 oz) 06/29/2025 2:35 P M EST Height 172.7 cm (5' 8 ) 06/29/2025 2:35 PM EST Body Mass Index 29.53 06/29/2025 2:35 PM EST Plan of Treatment Upcoming Encounters Date Type Department Care Team (Late st Contact Info) Description 08/19/2025 8:00 AM EST Office Visit Adult Medicine [facility] [address] [place], [place] [phone] Steffany Vázquez MD [address] [place] [address] 03/25/2026 1:40 PM EDT Office Visit Gastroenterology - [address] [phone] Shaila Williamson, ARUN [address] [address] Health Maintenance Due Date Last Done Comments Hepatitis B Vaccines (1 of 3 - 19+ 3-dose series) 09/19/1994 Medicare Annual Wellness Visit 08/02/2023 Social Influencers of Health Screening 05/20/2026 05/20/2025 Breast Cancer Screening 03/05/2027 03/05/20, 03/04/2024, 03/04/2024, Additional history exists Cervical Cancer Screening: HPV 11/27/2027 11/26/2022 Cholesterol Screening (Lipid Panel) 07/03/2029 07/03/2024, 03/22/2023 DTaP,Tdap,and Td Vaccines (2 - Td or Tdap) 03/08/2033 03/08/2023 Colorectal Cancer Screening: Colonoscopy 08/14/2033 08/14/2023 RSV Immunization Adult Patients (1 - 1-dose 75+ series) 09/19/2050 Depression Screening Completed 08/12/2024, 10/30/19 HIV Screening Completed 09/30/2024 Hepatitis C Screening Completed 09/30/2024 COVID-19 Vaccine Discontinued HIB Vaccines Aged Out No longer eligi ble based on patient's age to complete this topic HPV Vaccines Aged Out No longer eligi ble based on patient's age to complete this topic Hepatitis A Vaccines Aged Out No long er eligible based on patient's age to complete this topic IPV Vaccines Aged Out No longer eligi ble based on patient's age to complete this topic Influenza Vaccine Discontinued MMR Vaccines Aged Out No longer eligi ble based on patient's age to complete this topic Meningococcal ACWY Vaccine Aged Out N o longer eligible based on patient's age to complete this topic Meningococcal B Vaccine Aged Out No l onger eligible based on patient's age to complete this topic Pneumococcal Vaccine: Pediatrics (0 to 5 Years) and At-Risk Patients (6 to 49 Years) Aged Out No longer eligible based on patient's age to complete this topic RSV Immunization Patients Under 20 months Aged Out No longer eligible based on patient's age to complete this topic Varicella Vaccines Aged Out No longer eligible based on patient's age to complete this topic Procedures Procedure Name Priority Date/Time Associated Diagnosis Comments MG MAMMO DIGITAL SCREENING W TERRY BILAT Routine 03/05/2025 1:03 PM EDT Encounter for screening mammogram for breast cancer HEPATITIS C ANTIBODY Routine 09/30/2024 12:51 PM EDT Encounter for well woman exam with routine gynecological exam Screen for STD (sexually transmitted disease) HIV 1, 2 ANTIBODY, P24 ANTIGEN WITH REFLEX TO DIFFERENTIATION Routine 09/30/2024 12:51 PM EDT Encounter for well woman exam with routine gynecological exam Screen for STD (sexually transmitted disease) LIPID PANEL WITH REFLEX TO DIRECT LDL Routine 07/03/2024 9:27 AM EST Physical exam HM DEPRESSION SCREENING Routine 10/30/2023 COLONOSCOPY Routine 08/14/2023 2:25 PM EST HM HPV Routine 11/26/2022 from Last 3 Months or Most Recently Relevant to Health Maintenance Results * MG Mammo Digital Screening w Terry bilat (03/05/2025 1:03 PM EDT) Anatomical Region Laterality Modality Breast Bilateral Mammography 03/09/2025 11:2 1 AM EDT Impressions 03/09/2025 11:27 AM EDT No mammographic evidence of malignancy. A negative mammogram in the presence of a clinically suspicious palpable abnormality does not preclude the possibility of malignancy or alter the indications for biopsy. PQRI CPT II 3342F Code 41086, 63376 PQRI 225 CPT II 7025F TISSUE DENSITY: The breasts are heterogeneously dense, which may obscure small masses. (BI-RADS category C) IMPRESSION: Benign. BI-RADS CATEGORY: 2 - BENIGN RECOMMENDATION: Screening bilateral mammogram is recommended in 1 year. Mammo Location: [facility], [facility], [address] [place] [address] -------- FINAL REPORT -------- Dictated By: Joseph Thurston Dictated Date: 03/09/2025 11:21 ET Assigned Physician: Joseph Thurston Reviewed and Electronically Signed By: Joseph Thurston Signed Date: 03/09/2025 11:27 ET Workstation ID: [id number] Transcribed By: Self Edit Transcribed Date: 03/09/2025 11:21 ET Narrative 03/09/2025 11:27 AM EDT CLINICAL: The patient is a 49 years Female presenting for routine screening mammography. 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 COMPARISON: Most recently 03/04/2024 and most remotely 10/02/2022. TECHNIQUE: Full-field digital mammography of the breasts bilaterally consisting of tomosynthesis in MLO and CC projection is performed in the [employer] 2000-D unit. Computer aided detection utilizing the iCAD system was utilized. FINDINGS: The breasts are again seen to be composed of a combination of fatty and moderately dense fibroglandular elements. Bilateral benign punctate calcifications are stable. There is no suspicious cluster of microcalcifications, mass, or area of architectural distortion. There is no skin thickening or nipple retraction. Procedure Note Joseph Thurston MD - 09/02/2025 CLINICAL: The patient is a 49 years Female presenting for routinescreening mammography. The patient underwent stereotactic core biopsy ofmicrocalcifications at the 12:00 position of the left breast on 11/15/2022,pathology benign (columnar cell hyperplasia and pseudoangiomatous stromalhyperplasia). COMPARISON: Most recently 03/04/2024 and most remotely 10/02/2022. TECHNIQUE: Full-field digital mammography of the breasts bilaterallyconsisting of tomosynthesis in MLO and CC projection is performed in theDifferential Dynamicsographe 2000-D unit. Computer aided detection utilizing the [employer]ystem was utilized. FINDINGS: The breasts are again seen to be composed of a combination offatty and moderately dense fibroglandular elements. Bilateral benignpunctate calcifications are stable. There is no suspicious cluster ofmicrocalcifications, mass, or area of architectural distortion. There isno skin thickening or nipple retraction. IMPRESSION: No mammographic evidence of malignancy. A negative mammogram in the presence of a clinically suspicious palpableabnormality does not preclude the possibility of malignancy or alter theindications for biopsy. PQRI CPT II 3342F Code 13705, 19934 PQRI 225 CPT II 7025F TISSUE DENSITY: The breasts are heterogeneously dense, which may obscuresmall masses. (BI-RADS category C) IMPRESSION: Benign. BI-RADS CATEGORY: 2 - BENIGN RECOMMENDATION: Screening bilateral mammogram is recommended in 1 year. Mammo Location: [facility], [facility], [address] [place] [address] -------- FINAL REPORT -------- Dictated By: Joseph Thurston Dictated Date: 03/09/2025 11:21 ET Assigned Physician: Joseph Thurston Reviewed and Electronically Signed By: Joseph Thurston Signed Date: 03/09/2025 11:27 ET Workstation ID: [id number] Transcribed By: Self Edit Transcribed Date: 03/09/2025 11:21 ET us Self Referral Sppl IMG BI PROCEDURES Final Resul t * Hepatitis C antibody (09/30/2024 12:51 PM EDT) Hepatitis C Antibody Negative Negative LAB CHEMISTRY METHOD 09/30/2024 8:38 PM EDT [facility] Blood Venous blood specimen / Unknown Venipuncture / Unknown 09/30/2024 12:51 PM EDT 09/30/2024 12:51 PM EDT [facility] LAB BLOOD ORDERABLES Final Re sult Performing Organization Address [facility] Co de Phone Number [facility] [address] [place] [address], [place] [phone] * HIV 1,2 antibody, p24 antigen with reflex to differentiation (09/30/2024 12:51 PM EDT) Pathologist [facility] HIV Combo AB/AG Negative Negative LAB CHEMISTRY METHOD 09/30/2024 7:30 PM EDT [facility] Blood Venous blood specimen / Unknown Venipuncture / Unknown 09/30/2024 12:51 PM EDT 09/30/2024 12:51 PM EDT Narrative [facility] - 09/30/2024 7:30 PM EDT This assay is a 4th generation assay allowing for earlier detection of HIV infection by detecting the presence of the HIV-1 p24 antigen as well as the traditional antibodies to HIV type 1 (including group O) and type 2. Use of a 4th generation assay is the current CDC recommendation for HIV screening. [facility] LAB BLOOD ORDERABLES Final Re sult Performing Organization Address [facility] Co de Phone Number [facility] [address] [place] [address], [place] [phone] * (ABNORMAL) Lipid panel with reflex to direct LDL (07/03/2024 9:27 AM EST) Pathologist [facility] Cholesterol 205(H) 0 - 200 mg/dL LAB CHEMISTRY METHOD 07/03/2024 10:47 AM EST [facility] Triglycerides 109 0 - 150 mg/dL LAB CHEMISTRY METHOD 07/03/2024 10:47 AM EST [facility] HDL 79 >=40 mg/dL LAB CHEMISTRY METHOD 07/03/2024 10:47 AM [facility] LDL Calculated 104(H) 0 - 100 mg/dL LAB CHEMISTRY METHOD 07/03/2024 10:47 AM [facility] VLDL Cholesterol Issac 21.8 mg/dL LAB CHEMISTRY METHOD 07/03/2024 10:47 AM [facility] Non HDL Chol. (LDL+VLDL) 126 <145 mg/dL LAB CHEMISTRY METHOD 07/03/2024 10:47 AM [facility] Chol/HDL Ratio 2.6 0.0 - 4.4 LAB CHEMISTRY METHOD 07/03/2024 10:47 AM [facility] Blood Venous blood specimen / Unknown Venipuncture / Unknown 07/03/2024 9:27 AM EST 07/03/2024 10:04 AM EST us Steffany Vázquez MD LAB BLOOD ORDERABL ES Final Result [facility] [address] [place] [address], * Depression Screening (10/30/2023) [facility] Depression Screening abstracted Historical Provider HEALTH MAINTENANCE Final Result * COLONOSCOPY (08/14/2023 2:25 PM EST) Anatomical Region Laterality Modality Endoscopy us Not In System Provider GI~PROCEDURE ORDERABLES F inal Result * Cervical Cancer Screening: HPV (11/26/2022) [facility] Cervical Cancer Screening: HPV abstracted, negative Historical Provider HEALTH MAINTENANCE Final Result from Last 3 Months or Most Recently Relevant to Health Maintenance Insurance [facility]IC[facility] Member Subscriber Plan / Payer (Ef fective 2023-Present) Name:BEBE OSBORN Relation to Subscriber:Self Name:Bebe Osborn Payer ID:[id number] Group ID:[id number] Type:Not on file Address: [address] [facility] [place] [phone] Care Teams It Programmer Relationship Specialty Start Date End Date Steffany Vázquez MD [address] [place] [address] [phone] PCP - General Internal Medicine 06/29/25
--- OUTSIDE RECORDS SUMMARY | 2025-07-07 15:08 | XMS_ITS | Encounter Summary ---
Author Organization [facility] Address [address] [place] [address] Care Team Providers Care Lead Electrician Name Role Phone Steffany Vázquez MD Primary Care Prov ider Encounter Details Date Type Department Care Team (Late st Contact Info) Description 09/18/2024 Lab Requisition [facility] - Main Lab [address] [place] [phone] Spike Young MD [address] [place] [address] Frequency of micturition Social History Tobacco Use [...] care for your loved ones. For example, early childhood education instructor or elderly care for an older adult? [...] is your living situation? Unrecognized valu e 06/19/2024 Comments No Sex and Gender Information Value Date Recorded Sex Assigned at Female 04/28/2025 10:46 PM EDT Legal Sex Female 9:05 PM EST Gender Identity Female 04/28/2025 10:46 PM EDT Sexual Orientation Straight 04/28/2025 10 :46 PM EDT documented as of this encounter Plan of Treatment Upcoming Encounters Date Type Department Care Team (Late st Contact Info) Description 08/19/2025 8:00 AM EST Office Visit Adult Medicine [address] [phone] Steffany Vázquez MD [address] [place], [place] 03/25/2026 1:40 PM EDT Office Visit Gastroenterology - [address] [phone] Shaila Williamson, AR[place] [address] [address] documented as of this encounter Procedures Procedure Name Priority Date/Time Associated Diagnosis Comments CULTURE URINE Routine 09/18/2024 6:29 PM EDT Frequency of micturition documented in this encounter Results * Culture urine (09/18/2024 6:29 PM EDT) Culture, Urine No growth 09/19/2024 1:13 PM EDT [facility] Urine Urine specimen obtained by clean catch procedure / Unknown 09/18/2024 6:29 PM EDT 09/18/2024 6:30 PM EDT us Spike Young MD LAB MICROBIOLOGY - GENER AL ORDERABLES Final Result [facility] [address] [place] [address], [place] [phone] documented in this encounter Visit Diagnoses Diagnosis Frequency of micturition Urinary frequency documented in this encounter Additional Health Concerns Assessment Noted Time PHQ-9 Depression Total Score: 14 025 8:43 AM EST documented as of this encounter Care Teams Lead Electrician Relationship Specialty Start Date End Date Steffany Vázquez MD [address] [place] [address] PCP - General Internal Medicine 06/29/25 documented as of this encounter
--- OUTSIDE RECORDS SUMMARY | 2025-07-07 15:08 | XMS_ITS | Patient Health Record ---
Author Organization [facility] Billing Info Address [address] [place] [address] Phone [phone] Care Team Providers Care Gyro Mechanic Name Role Phone Anil GARCÍA, [facility] Reason For Referral No Information Medications Medication SIG (Take, Route, Frequency, Duration) Notes Start Date End Date Diagnosis (ICD Code) Status Emjoi TENS Device as directed 05/24/2016 Active Transdermal Pain Base -- Cream as directed Externally As directed; Duration: 30 day(s) 05/24/2016 Active Diphenoxylate-Atropi ne 2.5-0.025 MG Tablet Oral; Duration: 30 Active Lyrica 200 MG Capsule Oral; Duration: 30 Active Tramadol HCl 50 MG Tablet Oral; Duration: 30 Active Sertraline HCl 100 MG Tablet Oral; Duration: 30 Active Metoprolol Succinate ER 25 MG Tablet Extended Release 24 Hour Oral; Duration: 90 Active Ondansetron 4 MG Tablet Dispersible 1 tablet on the tongue and allow to dissolve Orally every 8 hrs Active Nortriptyline HCl 50 MG Capsule Oral; Duration: 90 Active Transdermal Pain Base - Cream as directed Externally 11/06/2016 Chronic bilateral low back pain with bilateral sciatica (ICD_10 - M54.42) Active Dicyclomine HCl 20 MG Tablet Oral; Duration: 90 Active Chlorzoxazone 500 MG Tablet Oral; Duration: 30 Active Voltaren 1 % Gel Transdermal; Duration: 30 Active Lidocaine 5 % Ointment External; Duration: 30 Active Nasonex 50 MCG/ACT Suspension Nasal; Duration: 30 Active Protonix 40 MG Tablet Delayed Release 1 tablet Orally Once a day Active Cetirizine-Pseudoeph edrine ER 20 mg Tablet Extended Release 12 Hour 1 tablet Orally Twice a day Active Lorzone 375 MG Tablet Orally Active Social History Tobacco Use: Social History Observation Description Date Details (start date - stop date) Never Smoker NA - NA Sex Observation Social History Observation Description Sex Observation Female Social History Social History Social Info Question Answer Notes Tobacco Status: Patient is a never smoker Illicit Drug Use: Patient/Family reports: No illicit d rug use Alcohol Use: Patient does not use alcohol Ambulatory Status: : is independent Additional Details Category Social Info Options Details Social History Occupation/Work: , 2013 Exercise: walking Caffeine: none Children: yes Marital Status: Lives with: child Drugs: none Education/School: college Problems Problem Type SNOMED Code ICD Code Dates Problem Status W/U Status Risk Notes Problem Chronic pain (32048704) Other chronic pain (G89.29) Added On: Active confirmed Problem Sciatica (83481008) Lumbago with sciatica, right side (M54.41) Added On: Active confirmed Problem Arthralgia of the pelvic region and thigh (918321674) Hip pain, left (M25.552) Added On: 017 Active confirmed Problem Sciatica (46308766) 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) Added On: Active confirmed Plan Of Treatment Pending Test Test Name Order Date XRAY-SPINE, LUMBOSACRAL; 2 OR 3 VIEWS (7 2100) 05/24/2016 Insurance Providers Payer Name Payer Address Payer Phone Subscriber Number Group Number Insured Name Patient Relationship to Insured Coverage Start Date Coverage End Date MEDICARE [place] PART B [address] CARLOS LEON [id number] [phone] [id number] Matthew Bebe Self - patient is the insured 0 MEDICAID [place] [address] [place], [place] [id number] [phone] [id number] Bebe Castro Self - patient is the insured 4 Medical (General) History Medical History History ICD Code Fibromyalgia Esophageal reflux Insomnia Depression DX 2007 ([place]) Carpal tunnel Surgical History Surgery Date(Month/Year) lumbar fusion by Dr. Harrison 04/19/14 lumbar laminectomy ([place]) 2010,, 04/2008 hysterectomy 2010 knee surgery, right breast biopsy, left 2001 breast reduction 08/2015
--- OUTSIDE RECORDS SUMMARY | 2025-07-07 15:08 | XMS_ITS | Patient Health Record ---
Author Organization [facility] Address [address] [place] [address] Care Team Providers Care Newspaper Delivery Driver Name Role Phone Michael Lopez Unavailable [phone] Bhanu Maddox Unavailable Unavailable Reason For Referral No Information Medications Medication SIG (Take, Route, Frequency, Duration) Notes Start Date End Date Status Zofran 4 MG 2 tablets Orally Once a day prn same Not-Taking Nasonex 50 MCG/ACT 2 sprays in each nostril Nasally Once a day same prn Not-Taking Vitamin B12 3000 MCG Sublingual Active Voltaren 1 % Apply to affected area Externally Four times a day Not-Taking Diphenoxylate-Atropine 2.5-0.025 MG 1 tablet as needed Orally PRN *updated Not-Taking ZyrTEC Allergy 10 MG 1 tablet Orally Once a day Not-Taking Zolpidem Tartrate 10 MG 1 tablet at bedt venkat as needed Orally Once a day nott taking Not-Taking Salsalate 500 MG 2 tablets Orally Three times a day same Not-Taking tiZANidine HCl 2 MG 1 tablet as needed Orally Three times a day Not-Taking Iron 65 MG 1 tablet Orally Once a day Not-Taking Vitamin B 12 500 MCG 1 lozenge Orally Once a day Not-Taking Hyoscyamine Sulfate 0.125 MG 1 tablet under the tongue and allow to dissolve before meals as needed Sublingual every 4 hrs same Not-Taking Vitamin D 50 MCG (2000 UT) 1 tablet Orally Once a day; Duration: 30 day(s) Active Methocarbamol 500 MG 1 tablet Orally Four times a day same- Not-Taking Cetirizine-Pseudoephedr ine ER 5-120 MG 1 tablet Orally Twice a day prn same Not-Taking Protonix 40 MG 1 tablet Orally Once a day same- Active Lyrica 150 MG 1 capsule Orally Three times a day *updated Active Ibuprofen 800 MG 1 tablet with food or milk as needed Orally Three times a day Active Baclofen 10 MG 1 tablet with food or milk Orally Three times a day not taking Not-Taking DULoxetine HCl 60 MG 1 capsule Orally Once a day; Duration: 30 day(s) Active Metoprolol Tartrate 25 MG 1/4 tablet Orally every 12 hrs/PRN *updted Not-Taking Sertraline HCl 100 MG 1 tablet Orally Once a day same- Not-Taking Dicyclomine HCl 20 MG 1 tablet Orally Four times a day same- Active Nortriptyline HCl 10 MG 4 tabs Orally On ce a day *updated Active Probiotic - as directed Orally Active Problems Problem Type SNOMED Code ICD Code Onset Dates Problem Status W/U Status Risk Notes Problem Vitamin D deficiency (43283643) Vitamin D Deficiency (E55.9) Active confirmed Problem Gastroduodenitis (577371233) Unspecified gastritis and gastroduodenitis without mention of hemorrhage (K29.70) Active confirmed Problem Chronic lymphocytic thyroiditis (93033676) Chronic lymphocytic thyroiditis (E06.3) Active confirmed Problem Non-toxic multinodular goiter (79438340) Nontoxic multinodular goiter (E04.2) Active confirmed Problem Anemia (994994597) Unspecified a nemia (D64.9) Active confirmed Problem Hypothyroidism (86858611) Hypothyroidism (E03.9) Active confirmed Problem Depression (572921451) Depression (F32.8) Active confirmed Problem Thyroid nodule (839482941) Thyroid Nodule (E04.1) Active confirmed Problem Chronic kidney disease stage 2 (502371010) Chronic kidney disease, Stage II (mild) (N18.2) Active confirmed Problem Fibromyalgia (591753685) Fibromyalgia (M79.7) Active confirmed Problem Palpitations (37044085) Palpitations (R00.2) Active confirmed Problem BMI 25-29 - overweight (400483232) Body mass index (BMI) 25.0-25.9, adult (Z68.25) Active confirmed Plan Of Treatment Pending Test Test Name Order Date Anti-TPO(Thyroid Peroxidase) Antibody* 0 08/24/2014 Anti-Thyroglobulin Antibody* 08/24/2014 TSH 08/24/2014 TSH + Free T4 + Free T3 10/19/2015 TSH , Free T4 , Free T3* 10/04/2014 Free T3 08/24/2014 Free T4 08/24/2014 Insurance Providers Payer Name Payer Address Payer Phone Subscriber Number Group Number Insured Name Patient Relationship to Insured Coverage Start Date Coverage End Date [employer] Medicare ([employer] [address] [address] [place] [phone] [id number] Bebe Martinez Self - patient is the insured Medical (General) History Medical History History ICD Code Mitral Valve Prolapse Elsa's Thyroiditis (2010) Thyroid Nodules (2010) Fibromyalgia Carpal tunel Sme Herniated discs Anemia Sinusitis Depression - Anxiety - Insomnia Breast mass - Lt - Hx biopsy (1999) Surgical History Surgery Date(Month/Year) breast bx 13 yrs ago L-Spine surg 04/2014 Breast reduction Surg Aug 2015 cataracts both Hospitalization History Reason Date(Month/Year) Gastritis 01/18 Prostesis
--- OUTSIDE RECORDS SUMMARY | 2025-07-07 15:08 | XMS_ITS | Encounter Summary ---
Author Organization [facility] Address [address] [place] [address] Care Team Providers Care Ladderman Name Role Phone Steffany Vázquez MD Primary Care Prov ider Encounter Details Date Type Department Care Team (Late st Contact Info) Description 10/26/2024 Lab Requisition [facility] - Main Lab [address] [place] [phone] Spike Young MD [address] [place] [address] Urinary tract infection, site not specified Social History Tobacco Use Types Packs/Day Years [...] for your loved ones. For example, child protective investigator or elderly care for an older adult? [...] file Not on file Not on file documented as of this encounter Plan of Treatment Upcoming Encounters Date Type Department Care Team (Late st Contact Info) Description 08/19/2025 8:00 AM EST Office Visit Adult [address] [address] Steffany Vázquez MD [address] [place], [place] 03/25/2026 1:40 PM EDT Office Visit Gastroenterology - [address] [address] Shaila Williamson, [place] [address] [address] documented as of this encounter Procedures Procedure Name Priority Date/Time Associated Diagnosis Comments URINALYSIS WITH REFLEX MICROSCOPIC Routine 10/26/2024 12:00 AM EDT Urinary tract infection, site not specified URINALYSIS WITH REFLEX MICROSCOPIC Routine 10/26/2024 12:00 AM EDT Urinary tract infection, site not specified CULTURE URINE Routine 10/26/2024 12:00 AM EDT Urinary tract infection, site not specified documented in this encounter Results * (ABNORMAL) Urinalysis with reflex microscopic (10/26/2024 12:00 AM EDT) Specific Bertrand Urine 1.014 1.003 - 1.030 LAB URINALYSIS - AUTOMATED METHOD 10/26/2024 6:[address] [facility] pH, Urine 7.5 5.0 - 8.0 pH LAB URINALYSIS - AUTOMATED METHOD 10/26/2024 6:[address] [facility] Leukocytes, Urine Moderate(A) Negative LAB URINALYSIS - AUTOMATED METHOD 10/26/2024 6:[address] [facility] Nitrite, Urine Positive(A) Negative LAB URINALYSIS - AUTOMATED METHOD 10/26/2024 6:[address] [facility] Protein, Urine Negative <=Trace mg/dL LAB URINALYSIS - AUTOMATED METHOD [facility] Glucose, Urine Negative Negative mg/dL LAB URINALYSIS - AUTOMATED METHOD 10/26/2024 6:[address] [facility] Ketones, Urine Negative Negative mg/dL LAB URINALYSIS - AUTOMATED METHOD 10/26/2024 6:[address] [facility] Urobilinogen , Urine 1.0 0.2 - 1.0 mg/dL LAB URINALYSIS - AUTOMATED METHOD 10/26/2024 6:[address] [facility] Bilirubin, Urine Negative Negative LAB URINALYSIS - AUTOMATED METHOD 10/26/2024 6:[address] [facility] Blood, Urine Negative Negative LAB URINALYSIS - AUTOMATED METHOD 10/26/2024 6:[address] [facility] RBC, Urine 5.8(H) 0 - 4 /HPF LAB URINALYSIS - AUTOMATED METHOD 10/26/2024 6:[address] [facility] WBC, Urine 33.7(H) 0 - 4 /HPF LAB URINALYSIS - AUTOMATED METHOD 10/26/2024 6:[address] [facility] Squamous Epithelial, Urine >100(H) 0 - 60 /LPF LAB URINALYSIS - AUTOMATED METHOD 10/26/2024 6:[address] [facility] Bacteria, Urine Many(A) Negative /HPF LAB URINALYSIS - AUTOMATED METHOD 10/26/2024 6:[address] [facility] Hyaline Casts, Urine 6.8(H) 0 - 3 /LPF LAB URINALYSIS - AUTOMATED METHOD 10/26/2024 6:[address] [facility] Urine Urine specimen obtained by clean catch procedure / Unknown 10/26/2024 10/26/2024 6:20 PM EDT us Spike Young MD LAB URINE ORDERABLES Fin al Result [facility] [address] [place] [address], [place] [phone] * (ABNORMAL) Culture urine (10/26/2024 12:00 AM EDT) Culture, Urine >100,000 CFU/mL Escherichia coli(A) EVGENY 10/28/2024 11:[address] [facility] Urine Urine specimen obtained by clean catch procedure / Unknown 10/26/2024 10/26/2024 6:20 PM EDT Narrative Organism Antibiotic Method Susceptibility Escherichia coli Amoxicillin/Clavulanate EVGENY 4 ug/ml: Susceptible Escherichia coli Ampicillin/Sulbactam EVGENY 16 ug/ml: Intermediate Escherichia coli Piperacillin/Tazobactam EVGENY <=4 ug/ml: Susceptible Escherichia coli Cefazolin (Urine) EVGENY 2 ug/ml: Susceptible Escherichia coli Cefoxitin EVGENY <=4 ug/ml: Susceptible Escherichia coli Ceftazidime EVGENY <=0.5 ug/ml: Susceptible Escherichia coli Ceftriaxone EVGENY <=0.25 ug/ml: Susceptible Escherichia coli Cefepime EVGENY <=0.12 ug/ml: Susceptible Escherichia coli Meropenem EVGENY <=0.25 ug/ml: Susceptible Escherichia coli Amikacin EVGENY 2 ug/ml: Susceptible Escherichia coli Gentamicin EVGENY <=1 ug/ml: Susceptible Escherichia coli Ciprofloxacin EVGENY <=0.06 ug/ml: Susceptible Escherichia coli Levofloxacin EVGENY <=0.12 ug/ml: Susceptible Escherichia coli Nitrofurantoin EVGENY 32 ug/ml: Susceptible Escherichia coli Trimethoprim/Sulfamethoxazole EVGENY <=20 ug/ml: Susceptible us Spike Young MD LAB MICROBIOLOGY - GENER AL ORDERABLES Final Result [facility] [address] [place] [address], [place] [phone] documented in this encounter Visit Diagnoses Diagnosis Urinary tract infection, site not specified documented in this encounter Additional Health Concerns Assessment Noted Time PHQ-9 Depression Total Score: 14 08/12/ 025 8:43 AM EST documented as of this encounter Care Teams Ladderman Relationship Specialty Start Date End Date Steffany Vázquez MD [address] [place] [phone] PCP - General Internal Medicine 06/29/25 documented as of this encounter
--- OUTSIDE RECORDS SUMMARY | 2025-07-07 15:08 | XMS_ITS | Encounter Summary ---
Author Organization [facility] Address [address] [place] [address] Care Team Providers Care Medication Aide Name Role Phone Steffany Vázquez MD Primary Care Prov ider Reason for Visit * Reason Onset Date Comments Forms/questionnaires 06/29/2025 Encounter Details Date Type Department Care Team ([facility] Contact Info) Description 06/29/2025 Telephone Adult Medicine [address] [phone] Steffany Vázquez MD [address] [place] [address] Social History Tobacco Use Types Packs/Day Years [...] do you feel lonely or isolated from ose around you? Never 05/20/2025 Food Risk [...] for your loved ones. For example, child care associate or elderly care for an older adult? [...] on file documented as of this encounter Progress Notes * Kimberly Sauer MA - 07/05/2025 9:08 AM EST F/u status of form upon jenns return 07/12/25 * Anniabrielle Kely - 06/29/2025 4:00 PM EST If patient presents with the one of the forms directly below the direct patient with their forms toMedical Records to be completed by [facility] disability forms ONLY All [employer] requests for Worker's Compensation Motor vehicle accident [facility] Elder Care/[facility] Physical forms for long-term housing Life insurance FORMS TO BE COMPLETED IN THE PRACTICE: Type of form: Handicap placard Release of information form ( all sections) has been completed and signed. Yes If this form is for the Registry of Motor Vechicles for a handicap placard or plate is the patient go to be: the automobile drivers Is the patient still driving? Yes For what medical problem does the patient need this form completed? Limited Mobility Is patients name on the form? Yes Is the patients portion (demographics) of the form completed? Yes Did the patient sign the form? Yes Which provider is form to be completed by? Steffany De La Rosa MD Patient requesting the form be: Will shredder picker-call when completed: (home) If form is not to be picked up by patient has patient been informed that RELEASE OF INFO form must be signed by them for alternate person to shredder picker form? Yes Patient has been informed that completion will be in 7-10 business days: Yes documented in this encounter Plan of Treatment Upcoming Encounters Date Type Department Care Team (Late st Contact Info) Description 08/19/2025 8:00 AM EST Office Visit Adult Medicine [address] [phone] Steffany Vázquez MD [address] [place] [address] 03/25/2026 1:40 PM EDT Office Visit Gastroenterology - [address] [address] Shaila Williamson, [place] [address] [address] documented as of this encounter Visit Diagnoses Not on filedocumented in this encounter Additional Health Concerns Assessment Noted Time PHQ-9 Depression Total Score: 14 08/12/ 025 8:43 AM EST documented as of this encounter Care Teams Medication Aide Relationship Specialty Start Date End Date Steffany Vázquez MD [address] [place] [phone] PCP - General Internal Medicine 06/29/25 documented as of this encounter
--- OUTSIDE RECORDS SUMMARY | 2025-07-07 15:08 | XMS_ITS | Data Portability ---
Author Organization [facility] [address] Address [address] [place] [address] Assessment No assessment recorded. Plan of Treatment Reminders Order Date Submit Date Provider Last Modified By Organization Details Last Modified Time Details Appointments None recorded. Lab rapid strep group A, throat 2022 023 [email or web address], [address] [place] [address], [phone], 12:49:47 Referral None recorded. Procedures None recorded. Surgeries None recorded. Imaging None recorded. Medication Orders amoxicillin 875 mg tablet 2022 023 [id number], [address], [place], [phone], 12:49:54 Patient TargetsNo targets recorded. Patient Instructions Encounter Date Encounter Id Patient Instructions Last Modified By Organization Details Last Modified Time 11/28/2022 [id number] strep throat: care instructions [email or web address] Not available 11/28/2022 12:49:53 Reason for Referral None Reported. Results Created Date Observation Date Name Description Value Unit Range Abnormal Flag Note LastModifiedBy Organization Detail LastModifiedTime 11/29/1911/28/2022 rapid strep group A, throa t Unknown Analyte Normal = Negati ve Not Available jose singh [address], [address], 11/28/2022 12:12:56 11/29/1911/28/2022 rapid strep group A, throa t Unknown Analyte positi ve Not Available [facility] [address] [facility], [place], [address], 11/28/2022 12:12:56 Result Notes None recorded. Problems Name Problem SNOMED Code Status Onset Date Resolution Date Notes Provider Name and Address Organization Details Recorded Time Gastroesophage al reflux disease 589214470 Active 2022 TERA MORALES null, [place] - [facility] 12:08:23 Fibromyalgia 656356026 Active 2022 TERA MORALES null, PA - [facility] 12:09:04 Restless legs syndrome 21509564 Active 2022 TERA MORALES null, PA - [facility] 12:09:14 Irritable bowel syndrome 81064115 Active 2022 TERA MORALES null, PA - [facility] 12:09:20 Elsa thyroiditis 94319226 Active 2022 TERA MORALES null, PA - [facility] 12:09:52 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 Procedures Surgical History Date Name Laterality Status Provider Name and Address Organization Details Recorded Time hysterectomy completed [facility] - [facility] 11/28/2022 12:12:06 procedure on knee completed [facility] - [facility] 11/28/2022 12:12:24 procedure on back completed [facility] [place] - [facility] 11/28/2022 12:12:36 extraction of cataract completed [facility] - [facility] 11/28/2022 12:12:49 Imaging [...] height Body mass index (BMI) Body weight Pain severity - 0-10 verbal numeric rating [Score] - Reported Respiratory rate Oxygen saturation Heart rate Body temperature Systolic And Diastolic Provider Name and Address Organization Details Last Updated DateTime 172.72 cm 28.4 kg/m2 04911.7 7 g 8 17 /min 100 % 124 /min 98.3 [degF] 119/79 mm[Hg] TERA MORALES [employer] 12:13:51 Social History Question Answer Notes LastModified by [employer] Details LastModified Time Tobacco Smoking Status Never Smoker TERA catalan PA [employer] 11/28/2022 12:11:37 Have You Recently Traveled Abroad? No [email or web address] Information not available 11/28/2022 Sex: Unknown Functional Status Question Answer Note LastModified by [employer] Details LastModified Time Do you use any illicit or recreational drugs? No [email or web address] Information not available 11/28/2022 Do you or have you ever used any other forms of tobacco or nicotine? No Information not available 11/28/2022 What is your level of alcohol consumption? None [email or web address] Information not available 11/28/2022 Mental Status None recorded. Family History Nothing Reported. Medical History No medical history recorded. Gynecological HistoryNo gynecological history recorded. Obstetrics History GPAL:G 0 P 0 0 0 0 Past Encounters Encounter ID Performer Location Encounter Start Date Encounter Closed Date Diagnosis/Indication Diagnosis SNOMED-CT Code Diagnosis ICD10 Code Diagnosis IMO Codes Diagnosis Note [id number] [address] [facility] [place] [address] 02/08/2022 10:04:51 02/08/2022 12:55:30 [id number] Genesis Hale MD [address] [facility] [place] [address] 11/28/2022 09:25:31 11/28/2022 12:50:48 Streptococcal sore throat 90714161 J02.0 Use over the counter medication s [...] Wu Member ID Guarantor Name 11/28/2022 1 [facility] [id number] Bebe Castro [id number] Bebe Castro 03/12/2023 2 [place] [facility] Bebe Castro [id number] Bebe Castro 02/04/2023 1 [facility] (O) [id number] Bebe A Castro [id number] Bebe Castro Notes Date Note Type Note Provider Name and Address Organization Details Recorded Time 3 text/html Sore throatReported by PatientSore ThroatFor location, patient reportsthroat. For severity, patient reportsmoderate. For quality, patient reportssharpandhurts to swallow. For onset/timing, patient reports1 days. For associated symptoms, patient reportsno cough,no sputum production,no shortness of breath,no wheezing,no sinus pain,no vomiting,no nausea, andno hoarseness. Genesis Hale MD [address] [place], [place] [address], [address], [place] - [facility] 11/30/2022 12:09:01 OBGyn Episode No OBEpisode recorded.
== END 2025-07-07 14:09 | disposition home or self-care (01) ==
LOC: HO.HPHYS 13:50
PROVIDERS: PCP Internal Medicine; Visit Provider Physician Assistant
DX: M25.819 Other specified joint disorders, unspecified shoulder (principal)
CPT/HCPCS: 99499